=== PATIENT | female | born 2005 | race Caucasian/White ===

== ENCOUNTER 2025-09-20 03:31 | Emergency (ER) | payer MEDICAID ==
[~2025-09-20] VITALS: Ht 157.5 cm; Wt 63.5 kg
[2025-09-20] MEDS ORDERED: ONDANSETRON HCL/PF 4 MG/2 ML VIAL ONE (03:42)
[2025-09-20] MEDS ORDERED: FAMOTIDINE/PF INJ 20 MG/2 ML VIAL IV ONE (03:42)
[2025-09-20] MEDS ORDERED: IV NS 0.9% 250 ML IV ONE (03:51)
[2025-09-20] MEDS ORDERED: CT SWABBABLE VALVE TRANS SET 1 EA INFUS.SET MC ONE (03:51)
[2025-09-20] MEDS ORDERED: IOHEXOL-300 100 ML VIAL IV ONE (03:52)
[2025-09-20] MEDS: ONDANSETRON HCL/PF 4 MG/2 ML VIAL IV ONE (04:01)
[2025-09-20] MEDS: IV NS 0.9% 1,000 ML BAG IV ONE (04:01)
[2025-09-20] MEDS: FAMOTIDINE/PF INJ 20 MG/2 ML VIAL IV ONE (04:01)
[2025-09-20 04:02] LABS: PLATELET COUNT (AUTO) 322 K/uL (150-450); RED BLOOD CELL COUNT(AUTO) 4.90 MIL/uL (4.0-5.2); RED CELL DISTRIBUTION WIDTH 15.9 % (11.5-15.0); WHITE BLOOD COUNT (AUTO) 13.4 K/uL (4.3-11.0)
[2025-09-20 04:06] LABS: CALCIUM, SERUM 10.0 mg/dL (8.5-10.1); CREATININE 0.6 mg/dL (0.6-1.3); SODIUM SERUM 137.0 mmol/L (136-145); UREA NITROGEN, BLOOD 9.0 mg/dL (7-18)
[2025-09-20 04:12] LABS: ASPARTATE AMINOTRANSFERASE 31.0 U/L (15-37); TOTAL PROTEIN, SERUM 8.3 g/dL (6.4-8.2)
[2025-09-20 04:21] LABS: ALCOHOL, BLOOD < 3 mg/dL (0-10); PREGNANCY TEST SERUM QUAN 0 mIU/mL (0-6)
[2025-09-20 05:02] LABS: INR 1.07 (0.91-1.10)
[2025-09-20] MEDS ORDERED: POTASSIUM CHLORIDE 20 MEQ TAB.PRT.SR PO ONE (06:17)
[2025-09-20] MEDS ORDERED: MORPHINE SULFATE INJ 2 MG/ML DISP.SYRIN ONE (06:17)
[2025-09-20] MEDS: POTASSIUM CHLORIDE 20 MEQ TAB.PRT.SR PO ONE (06:21)
[2025-09-20] MEDS: MORPHINE SULFATE INJ 2 MG/ML DISP.SYRIN IV ONE (06:21)
[2025-09-20] MEDS ORDERED: KETO10TA2 PO (09:47)
[2025-09-20 11:30] VITALS: BP 128/78; TEMP 98.9; O2SAT 98
== END 2025-09-20 11:31 | disposition home or self-care (01) ==
LOC: ER 03:36
DX: S09.8XXA Other specified injuries of head, initial encounter (principal); D72.829 Elevated white blood cell count, unspecified; E87.6 Hypokalemia; J45.909 Unspecified asthma, uncomplicated; Z91.030 Bee allergy status; Z79.899 Other long term (current) drug therapy; Z86.2 Personal history of diseases of the blood and blood-forming organs and certain disorders involving the immune mechanism; Y04.0XXA Assault by unarmed brawl or fight, initial encounter; Y93.89 Activity, other specified; Y92.89 Other specified places as the place of occurrence of the external cause; Y99.9 Unspecified external cause status
CPT/HCPCS: 99285; 96374; 96375; 96361; 93005; 73590; 72125; 71260; 70450; 73110; 73200; 74177; 85025; 80048; 83690; 80076; 36415; 85730; 84702; 80320; J1308; J2405; J7050; J2270; Q9967; L0172; G0480